=== PATIENT | female | born 1940 | race Hispanic/Latino ===

== ENCOUNTER 2016-12-21 13:54 | Outpatient (CLI) | payer MEDICARE ==
--- NOTE | 2016-12-23 08:47 | Mammography Report ---
RIGHT DIGITAL SCREENING MAMMOGRAM with CAD: 12/21/16 13:54:00 CLINICAL: Routine screening. Breast cancer survivor status post left mastectomy 1992. COMPARISON:12/03/15 FINDINGS: The breast is predominantly fatty with a few stable retroareolar fibroglandular densities. An upper outer biopsy clip with a stable asymmetry of the.No mass, architectural distortion or suspicious calcifications. IMPRESSION: No mammographic evidence of malignancy. BI-RADS CATEGORY: 2 -- Benign RECOMMENDATION: Routine screening in one year. ACR BI-RADS MAMMOGRAPHIC CODES: 0 = Needs additional imaging evaluation; 1 = Negative; 2 = Benign; 3 = Probably benign; 4 = Suspicious; 5 = Malignant; 6 = Known biopsy-proven malignancy COMMENT: 1. Dense breast tissue, i.e., adenosis, fibrocystic changes, etc., may obscure an underlying neoplasm. 2. Approximately 10% of cancers are not detected with mammography. 3. A negative mammography report should not delay biopsy if a clinically suspicious mass is present. COMMENT: Patient follow-up letters are generated via our [employer] application.
== END 2016-12-21 13:55 | disposition home or self-care (01) ==
LOC: SPVWC 13:54
PROVIDERS: ATTEND Physician Assistant
DX: Z12.31 Encounter for screening mammogram for malignant neoplasm of breast (principal); E78.00 Pure hypercholesterolemia, unspecified; D64.9 Anemia, unspecified; Z90.12 Acquired absence of left breast and nipple
CPT/HCPCS: G0202-52